=== PATIENT | female | born 1960 | race Caucasian/White ===

== ENCOUNTER 2018-11-27 10:56 | Outpatient (CLI) | payer OTHER ==
--- NOTE | 2018-11-27 13:52 | BD ---
BONE DENSITOMETRY USING DEXA: HISTORY: Postmenopausal screening for osteoporosis. FINDINGS: Lumbar Spine: BMD (g/cm2) L1 0.795 T-Score: -1.8 Z-Score: -0.6 L2 0.934 T-Score: -0.9 Z-Score: 0.4 L3 0.936 T-Score: -1.3 Z-Score: 0.0 L4 0.977 T-Score: -0.8 Z-Score: 0.6 L1-L4 0.916 T-Score: -1.2 Z-Score: 0.1 Femoral Neck: 0.721 T-Score: -1.2 Z-Score: 0.1 Total Femur: 0.996 T-Score: 0.4 Z-Score: 1.3 The 10-year fracture risk for a major osteoporotic fracture is 11% and for a hip fracture is 0.7%. Impression: Osteopenia. POS: [facility]
== END 2018-11-27 10:57 | disposition home or self-care (01) ==
LOC: BICMAMMO 10:56
PROVIDERS: ATTEND Physician Assistant
DX: Z78.0 Asymptomatic menopausal state (principal); M85.89 Other specified disorders of bone density and structure, multiple sites
CPT/HCPCS: 77080

== ENCOUNTER 2018-12-25 09:48 | Outpatient (CLI) | payer OTHER ==
--- NOTE | 2018-12-25 10:20 | MMO ---
MAMMO [facility]. CLINICAL HISTORY: Patient is 58 years old and is seen for diagnostic exam. The patient has no family history of breast cancer. The patient has no personal history of cancer. VIEWS: The views performed were: bilateral craniocaudal with tomosynthesis; bilateral mediolateral oblique with tomosynthesis; and bilateral mediolateral with tomosynthesis. MAMMOGRAM FINDINGS: There are scattered fibroglandular densities. There are no suspicious masses, calcifications or areas of architectural distortion. IMPRESSION: THERE IS NO MAMMOGRAPHIC EVIDENCE OF MALIGNANCY. A ROUTINE FOLLOW-UP MAMMOGRAM IN 1 YEAR IS RECOMMENDED. THE RESULTS OF THIS EXAM WERE SENT TO THE PATIENT. ACR BI-RADS Category 1 - Negative MAMMOGRAPHY NOTE: 1. A negative mammogram report should not delay a biopsy if a dominant of clinically suspicious mass is present. 2. Approximately 10% to 15% of breast cancers are not detected by mammography. 3. Adenosis and dense breasts may obscure an underlying neoplasm.
== END 2018-12-25 09:49 | disposition home or self-care (01) ==
LOC: BICMAMMO 09:48
PROVIDERS: ATTEND Physician Assistant
DX: R92.8 Other abnormal and inconclusive findings on diagnostic imaging of breast (principal)
CPT/HCPCS: 77066; G0279

== ENCOUNTER 2024-07-17 15:48 | Outpatient (CLI) | payer OTHER | END 2024-07-17 15:49 | disposition home or self-care (01) | LOC: BICRAD 15:48 | PROVIDERS: ATTEND Nurse Practitioner Family | DX: M25.561 Pain in right knee (principal); M17.11 Unilateral primary osteoarthritis, right knee ==

== ENCOUNTER 2024-09-25 15:22 | Outpatient (CLI) | payer MEDICARE | END 2024-09-25 15:23 | disposition home or self-care (01) | LOC: BICRAD 15:22 | PROVIDERS: ATTEND Family Medicine | DX: M25.471 Effusion, right ankle (principal); M19.071 Primary osteoarthritis, right ankle and foot; M77.51 Other enthesopathy of right foot and ankle ==

== ENCOUNTER 2025-10-07 06:07 | Day surgery (SDC) | payer MEDICARE, OTHER ==
[2025-10-01 14:25] VITALS: BMI 24.1
[2025-10-07] MEDS ORDERED: Thrombin 5000 UNITS/5 ML VIAL ONE (06:36)
[2025-10-07] MEDS ORDERED: PROPOFOL 20 ML ONE (06:39)
[2025-10-07] MEDS ORDERED: fentaNYL PF 100 MCG/2 ML SYRINGE ONE ×2 (06:39→08:36)
[2025-10-07] MEDS ORDERED: Ondansetron PF 4 MG/2 ML Vial ONE (06:39)
[2025-10-07] MEDS ORDERED: Rocuronium Bromide 10 MG/ML (10ML VIAL) ONE (06:39)
[2025-10-07] MEDS ORDERED: Lidocaine 1% PF 5 ML VIAL ONE (06:39)
[2025-10-07] MEDS ORDERED: SUGAMMADEX SODIUM 200 MG/2 ML VIAL ONE (06:41)
[2025-10-07] MEDS ORDERED: MINERAL OIL/WHITE PETROLATUM 3.5 GM TUBE ONE (06:46)
[2025-10-07] MEDS ORDERED: Acetaminophen 500 MG TAB ONE ×2 (07:01)
[2025-10-07] MEDS ORDERED: CEFAZOLIN 2 GM VIAL ONE ×2 (07:37→12:06)
[2025-10-07] MEDS ORDERED: HYDROcodone/Acetaminophen 5/325 mg Tablet ONE (13:13)
[2025-10-07] MEDS ORDERED: HYDROcodone/Acetaminophen 5/325 mg Tablet PO PRN ×2 (13:30)
== END 2025-10-07 13:21 | disposition home or self-care (01) ==
LOC: SDC 06:07
PROVIDERS: ATTEND Neurological Surgery
PROC: 01NB0ZZ Release Lumbar Nerve, Open Approach (ICD-10-PCS; principal; 2025-10-07)
DX: M48.061 Spinal stenosis, lumbar region without neurogenic claudication (principal); M54.16 Radiculopathy, lumbar region; Z90.710 Acquired absence of both cervix and uterus; Z90.89 Acquired absence of other organs
CPT/HCPCS: 63047; J0169; J0665; J1100; J2250; J2405; J2704; J3010; J3373